=== PATIENT | female | born 1985 | race Caucasian/White ===

== ENCOUNTER 2025-05-08 20:09 | Emergency (ER) | payer OTHER, SELFPAY ==
[2025-05-08 20:12] VITALS: BP 163/94
--- NOTE | 2025-05-08 20:43 | ED.GENMED ---
History of Present Illness
General
Chief Complaint: Crisis Evaluation
Source: patient
Exam Limitations: none
Time Seen by Provider: 05/08/25 20:22
Nursing documentation reviewed up to this point in time: agreed with
History of Present Illness
History of Present Illness:
40-year-old female history of anxiety depression hospitalized as a teenager had some anxiety lately tried to kill herself yesterday by overdosing on her Remeron took an unknown amount of pills, came in today. 24 hours still feels depressed, no
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
Past History
Past History
ED Past Medical History: Psychiatric (Anxiety, Depression); Negative Asthma, HTN, Hypercholesterolemia or NIDDM
ED Past Surgical History: None
Social History
Tobacco: Non-smoker
Alcohol: None
Drug: None
Living: with family
Employment: Employed
Review of Systems
Review of Systems
All Other Systems: Not applicable
Constitutional: Denies fever or fatigue
EENT: Reports no symptoms
Respiratory: Reports no symptoms
Cardiac: Reports no symptoms
ABD/GI: Reports no symptoms
Psychiatric: Reports depression, anxiety and suicidal
Phy Exam
Physical Exam
Physical Exam:
Physical Exam
General: no apparent distress, not acutely ill
Neck: No jaundice
Heart: s1/s2 regular rate and rhythm, no murmur. equal radial pulses.
Lungs: no acute respiratory distress. clear bilaterally
Neuro: alert and oriented. no focal neurological deficits
Skin: no rash
Psychiatric: cooperative flat affect admits to feeling suicidal at time
Extremities: no edema.
Course
Orders/Labs/Results
Orders:
Orders
05/08/25 20:17
1:1 Observation - Suicide/ Violent Behavior As Directed
05/08/25 20:42
Crisis Consult Urgent
Reason for Consult: od
Urine Drug Abuse Screen Urgent
Test Result ONCE
05/08/25 21:00
Acetaminophen Urgent
Alcohol Urgent
Comprehensive Metabolic Panel Urgent
HCG, Serum Qualitative Screen Urgent
Salicylate Urgent
Abnormal Lab Results
05/08/25
21:00
Glucose 119 H mg/dl
(70-99)
Calcium 10.6 H mg/dl
(8.4-10.2)
Total Protein 9.1 H g/dl
(6.3-8.2)
Albumin 5.1 H g/dl
(3.5-5.0)
Salicylates < 1.0 L mg/dl
(2.0-20.0)
Acetaminophen < 10 L ug/ml
(10-30)
05/08/25 21:00
Vital Signs
Initial and Last Documented VS:
Initial Vital Signs
Temp Pulse Resp BP Pulse Ox
98.6 F 111 15 163/94 95
05/08/25 20:12 05/08/25 20:12 05/08/25 20:12 05/08/25 20:12 05/08/25 20:12
Last Documented Vital Signs
Temp Pulse Resp BP Pulse Ox
98.6 F 111 15 163/94 95
05/08/25 20:12 05/08/25 20:12 05/08/25 20:12 05/08/25 20:12 05/08/25 20:46
MDM/Problems Addressed
Differential Diagnosis Includes:
Depression anxiety suicidal ideation on an SSRI which she overdosed on
MDM/Problems Addressed:
Overdose
Chronic conditions affecting care: Psychiatric illness
Acute Exacerbation and/or Progression of Chronic Illness: Psychiatric illness
*Pulse Oximetry
SaO2: 95
Oxygen Mode of Delivery: Room air
Patient hypoxic: no
*EKG
Interpreted by ED Provider?: Yes
Interpretation: normal
Comparison EKG: no comparison EKG present
Heart Rate: 78
Rate: normal
Rhythm: sinus
Ischemia: no ischemia
*Park Maintenance Technician Interpretation
Rate: Park Maintenance Technician- N/A
*Critical Care Note
Total Time (30-74mins, 75-104mins- exclusive of procedures): Not Applicable
Update Note
Update Note:
Update labs noted EKG pending reviewed with crisis recommended patient which I concur with
ED Attending Note
-
Portions of this chart may have been created with voice recognition software.� Occasional wrong word or��sound alike� substitutions may have occurred due to the inherent limitations of voice recognition software.
Discharge Plan
Departure
Patient Disposition: Psych Facility
Date of Disposition: 05/08/25
Time of Disposition: 21:59
Condition: Good
Discharge Problem:
Suicide attempt
Prescriptions:
No Action
tramadol 50 MG tablet
100 mg PO QID
venlafaxine 37.5 MG tablet
37.5 mg PO DAILY
spironolactone 50 MG tablet
50 mg PO BID
ondansetron 4 MG tablet,disintegrating
4 mg PO Q8HPRN PRN (Reason: Nausea/Vomiting) Qty: 10 0RF
Interventions
Interventions:
*Risk Screen - Suicide Last Done: 05/08/25 20:12
*General Assessment Last Done: 05/08/25 20:12
*Neglect/Abuse Screening Last Done: 05/08/25 20:12
ED-Psychological Assessment Last Done: 05/08/25 20:40
Discharge Date and Time
Print Language: INDONESIAN
[2025-05-08 21:32] LABS: HCG, Serum Qualitative Screen Negative
[2025-05-08 21:37] LABS: ALT (SGPT) 16 U/L (0-35); AST (SGOT) 20 U/L (14-36); Acetaminophen < 10 ug/ml (10-30); Albumin 5.1 g/dl (3.5-5.0); Alkaline Phosphatase 83 U/L (38-126); Blood Urea Nitrogen 16 mg/dl (7-17); Calcium 10.6 mg/dl (8.4-10.2); Carbon Dioxide 27 mmol/L (22-30); Chloride 105 mmol/L (98-107); Glucose 119 mg/dl (70-99); Potassium 4.2 mmol/L (3.5-5.1); Salicylate < 1.0 mg/dl (2.0-20.0); Sodium 144 mmol/L (135-145); Total Protein 9.1 g/dl (6.3-8.2); eGFR > 60.00
== END 2025-05-09 01:38 ==
LOC: EMR 20:09
PROVIDERS: EMERGENCY PHYSICIAN Emergency Medicine; FAMILY PHYSICIAN Family Medicine
DX: T43.022A Poisoning by tetracyclic antidepressants, intentional self-harm, initial encounter (principal); X58.XXXA Exposure to other specified factors, initial encounter; F41.9 Anxiety disorder, unspecified; F32.A Depression, unspecified
CPT/HCPCS: 99285; 80053; 80143; 80179; 80306; 80307; 82077; 84703; 93005; 99284